=== PATIENT | female | born 1960 | race African-American/Black ===

== ENCOUNTER 2018-11-13 14:49 | Observation (INO) | payer SELFPAY ==
[2018-11-13 16:18] LABS: Anion Gap 12 mmol/L (10-20); BUN (Urea Nitrogen) 43 mg/dL (9.8-20.1); Calc. Creatinine Clearance 0 mL/min (70-130); Calcium 9.3 mg/dL (7.8-10.44); Carbon Dioxide 22 mmol/L (22-29); Chloride 112 mmol/L (98-107); Estimated GFR-MDRD 42; Glucose 125 mg/dL (70-105); Sodium 141 mmol/L (136-145)
[2018-11-13 17:13] LABS: Troponin I Less than 0.010 ng/mL (< 0.028)
[2018-11-13] MEDS ORDERED: Acetaminophen 650 MG Suppository PR PRN (17:50)
[2018-11-13] MEDS ORDERED: Acetaminophen 325 MG TAB PO PRN (17:50)
[2018-11-13] MEDS ORDERED: Ondansetron PF 4 MG/2 ML Vial IVP PRN (17:50)
[2018-11-13] MEDS ORDERED: Ondansetron ODT 4 MG TAB PO PRN (17:50)
[2018-11-13] MEDS ORDERED: Dextrose 5% in Water 1,000 ML IV PRN (18:06)
[2018-11-13] MEDS ORDERED: Dextrose 50% Abboject 50 ML SYRINGE SLOW IVP PRN (18:06)
--- NOTE | 2018-11-13 19:25 | RAD ---
FRONTAL VIEW ABDOMEN: INDICATIONS: Abdominal pain. Increased abdominal girth. FINDINGS: There is a nonspecific bowel gas pattern. No mechanical obstruction is evident. Mild retained fecal material of the colon is present. There is no acute osseous pathology. IMPRESSION: Nonobstructive bowel gas pattern. POS: [facility]
--- NOTE | 2018-11-13 19:44 | HP ---
CHIEF COMPLAINT: Chest pain for 1 week and lower leg weakness. HISTORY OF PRESENT ILLNESS AND REVIEW OF SYSTEMS: Ms. Salinas is a pleasant 58-year-old woman presenting due to chest pain that has been intermittent for the last week. She last experienced pain this morning when taking out the trash and states it lasted seconds in the center of her chest, rating it a 5/10 in severity. The patient states it is nonradiating. She reports having a chronic dry cough, which has not worsened in recent days. She denies having any hemoptysis. She has noted increased shortness of breath more recently. She did not take anything for the pain, but sought medical attention. She was seen at the ER in [place] and noted to be hyperkalemic with a potassium of 5.8, elevated renal function, with a raised glucose of 291. The patient was given Kayexalate and started on IV fluids. Also given insulin. She has been transferred to the ED here at [facility] and admitted to observation for management of her hyperkalemia, hyperglycemia, and chest pain rule out. Repeat laboratory studies done in the ED shows an improved glucose of 125 and a potassium improved to 5.0. The patient has remained asymptomatic. The patient states she was recently seen by her primary care physician,who made adjustments to her medications on October 24, 2018. Due to bilateral diabetic neuropathy affecting her feet, she was started on gabapentin 400 mg twice daily. She also reports having an increased blood pressure. Therefore, her lisinopril was switched to lisinopril/hydrochlorothiazide 20/25 mg p.o. once daily. The patient states she noted her blood pressures were very labile and that her sugar was not as controlled as usual. She attributed this to the recent change in medications. Therefore, resumed her previous dose of lisinopril and stopped the lisinopril/hydrochlorothiazide. She has also been under a lot of stress at home with her autistic daughter, who recently underwent brain surgery. The patient reports having a diastolic blood pressure of 117 on one occasion and 115 on another occasion. She does not recall what the systolic blood pressure was, but self treated with clonidine. She was given a prescription of clonidine 0.1 mg p.o. to take once if her blood pressures were raised (systolic or diastolic as per parameters). The patient states that she decided to double up on this medication each time that she has required it. Therefore, taking 0.2 mg p.o. p.r.n. for diastolic blood pressure above 110. The patient says she has noted periods of hypotension and associated weakness. In addition to that, she complains of abdominal discomfort and increased abdominal bloating. She reports history of dry heaving and occasional vomiting in the mornings in recent weeks, but has not had any vomiting in the last few days. She has been moving her bowels, however, reports straining and hard stools. Yesterday, she had a bowel movement that did again require straining, was very hard, and small. This morning, however, she had very loose stools. Has had no further bowel movements since then. She denies taking anything for constipation. At present, she denies having any chest pain or palpitations. Denies having any shortness of breath. Reports a dry cough as mentioned previously that has been chronic in recent months. She has no known underlying lung problems. Denies having any hemoptysis. Denies having any headaches or dizziness. Reports chronic right upper extremity weakness since the stroke she had in January 2018. Denies having any urinary symptoms since her dysuria, hematuria, urgency, or frequency. Has not noted any bright red blood or melena in her stools. She reports tingling and numbness in the bilateral feet, the right worse than the left. She states this did improve when she was on gabapentin, however, she took herself off it recently given the changes in her blood pressure and glucose. PAST MEDICAL HISTORY: 1. Hypertension. 2. Diabetes mellitus, type 2 (insulin dependent). 3. Previous CVA in January 2018. 4. Diabetic neuropathy. 5. Hyperlipidemia. PAST SURGICAL HISTORY: Previous hysterectomy. SOCIAL HISTORY: The patient is fully independent. 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 She denies any history of tobacco use. Denies any illicit drug use or alcohol use. PHYSICAL EXAMINATION: GENERAL: The patient appears well developed, well nourished, in no acute distress. VITAL SIGNS: Temperature 98.6, heart rate 62, respirations 18, blood pressure 159/86, O2 saturation 99% on room air. HEENT: Normocephalic and atraumatic. Pupils are equal, round, reactive to light. Extraocular movements intact. Facial movements normal and facial sensation intact. NECK: Supple without lymphadenopathy. Full range of motion. LUNGS: Clear to auscultation bilaterally without any wheezes, crackles, or rhonchi. CARDIAC: Regular rate and rhythm. No reproducible chest pain/tenderness on exam. ABDOMEN: Obese, soft, but with increased abdominal girth as per the patient and discomfort in the left lower quadrant with palpation, but no rigidity or guarding. No renal angle tenderness. EXTREMITIES: No edema present. The right calf appears to have an increased circumference compared to the left, which the patient states is not normal for her. Altered sensation with increased sense of activity from the ankles down to include both feet. SKIN: Without rash or jaundice or any wounds/ulcerations. NEUROLOGIC: Alert and oriented x3. No focal deficits. She does have residual weakness and altered sensation in the right upper extremity with strength of 3/5. The patient states this was residual from previous CVA. LABORATORY DATA: White blood count 10.3, hemoglobin 10, hematocrit 30.8, platelets 300. Sodium 141, potassium 5.0, BUN 43, GFR 71, creatinine 1.56, eGFR 42, calcium 9.3. Serial troponins x2 are negative. IMAGING DATA: Chest x-ray, 11/13/2018, no radiographic evidence of acute cardiopulmonary process. IMPRESSION AND PLAN: Ms. Salinas will be admitted to the observation unit for management of the following conditions. 1. Hyperkalemia. Continue to monitor potassium. She is status post Kayexalate and IV fluids with an improved potassium of 5.0. Continue telemetry and will recheck potassium in the morning. Additional electrolytes requested such as magnesium. 2. Chest pain rule out. Awaiting third TNI. ECG demonstrated normal sinus rhythm with mild diffuse ST elevation. BNP normal. We will obtain echo and stress test. 3. Right lower extremity swelling. D-dimer requested as well as bilateral venous Doppler. 4. Neuropathy. Resume home medication. Hold mechanical SCDs and use ARTIE hose stockings instead given neuropathy as well as ruling out deep venous thrombosis. 5. Hypertension. Monitor blood pressure. Resume home medications. 6. Hyperglycemia. Insulin sliding scale. Resume home medications. Monitor blood glucose. 7. Gastrointestinal prophylaxis. 8. Abdominal bloating with constipation. An abdominal x-ray requested. 9. Diet. N.p.o. at midnight with plans to have the patient undergo stress test in the morning if possible. 10. We will discuss with Dr. Dick for further recommendations. Job ID: [id number]
[2018-11-13 19:57] LABS: Troponin I Less than 0.010 ng/mL (< 0.028)
--- NOTE | 2018-11-13 20:31 | ULT ---
BILATERAL LOWER EXTREMITY VENOUS DOPPLER DUPLEX ULTRASOUND: CPT: 61698 ICD-10-PCS: B54D INDICATIONS: Right lower extremity edema and calf pain. TECHNIQUE: Color-flow Doppler, spectral wave-form analysis of pulsed Doppler, and arauz-scale imaging with compre ssion and augmentation were used to evaluate the bilateral common femoral, femoral, popliteal, manager of internal audit ior tibial, and superficial femoral veins, and the proximal portions of the profunda femoral and grea ter saphenous veins. FINDINGS: There is appropriate compressibility and flow within the imaged deep venous system of each lower extr emity without evidence of DVT. IMPRESSION: No deep venous thrombosis identified. POS: [facility]
[2018-11-13] MEDS ORDERED: Famotidine 20 MG TAB PO SCH (21:00)
[2018-11-13] MEDS ORDERED: Famotidine/PF 20 mg/2ml Vial SLOW IVP SCH (21:00)
[2018-11-13 22:27] VITALS: BMI 35.9
[2018-11-13] MEDS: HumaLOG 300 UNITS/3 ML VIAL SC PRN (23:29)
[2018-11-14 06:31] LABS: #Basophils 0.1 thou/uL (0.0-0.2); #Eosinphils 0.2 thou/uL (0.0-0.7); #Lymphocytes 1.7 thou/uL (1.20-3.40); #Monocytes 0.5 thou/uL (0.11-0.59); #Neutrophils 6.3 thou/uL (1.40-6.50); %Basophils 0.8 % (0.0-1.0); %Eosinophils 2.2 % (0.0-10.0); %Lymphocytes 19.5 % (21.0-51.0); %Monocytes 6.1 % (0.0-10.0); %Neutrophils 71.4 % (42.0-75.0); Hemoglobin 9.4 g/dL (12.0-16.0); Mean Corpuscular HGB CONC 33.2 g/dL (32.0-36.0); Mean Corpuscular Hemoglobin 26.3 pg (27.0-31.0); Mean Corpuscular Volume 79.4 fL (78.0-98.0); Mean Platelet Volume 9.5 fL (7.4-10.4); Platelet Count 283 thou/uL (130-400); RBC Distribution Width 13.8 % (11.5-14.5); Red Blood Cell (RBC) Count 3.57 mill/uL (4.20-5.40); White Blood Cell (WBC) Count 8.8 thou/uL (4.8-10.8)
[2018-11-14 06:47] LABS: ALT (SGPT) 14 U/L (8-55); AST (SGOT) 12 U/L (5-34); Albumin 3.2 g/dL (3.5-5.0); Alkaline Phosphatase 138 U/L (40-150); Anion Gap 13 mmol/L (10-20); BUN (Urea Nitrogen) 38 mg/dL (9.8-20.1); Bilirubin, Total 0.3 mg/dL (0.2-1.2); Calc. Creatinine Clearance 57 mL/min (70-130); Carbon Dioxide 21 mmol/L (22-29); Cardiac Risk 3.5 (Less than 4.5); Chloride 112 mmol/L (98-107); Cholesterol 126 mg/dl (< 200 Desired); Estimated GFR-MDRD 40; Globulin 2.8 g/dL (2.4-3.5); Glucose 240 mg/dL (70-105); HDL Cholesterol 36 mg/dL (>60 Neg Risk); LDL Cholesterol, Calculated 69 mg/dL; Potassium 4.8 mmol/L (3.5-5.1); Sodium 141 mmol/L (136-145); Triglycerides 104 mg/dL (Less than 150)
[2018-11-14] MEDS ORDERED: Artificial Tears 18 DROP/0.9 ML EA EYE PRN (07:44)
[2018-11-14] MEDS ORDERED: Loratadine 10 MG TAB PO PRN (07:44)
[2018-11-14] MEDS ORDERED: Cepastat Lozenges 1 LOZ PO PRN (07:44)
[2018-11-14] MEDS ORDERED: Loperamide HCl 2 MG CAP PO PRN (07:44)
[2018-11-14] MEDS ORDERED: Sodium Chloride 0.65% Nasal 44 ML BOT EA NARE PRN (07:44)
[2018-11-14] MEDS ORDERED: Diabetic Tussin 200 MG/10 ML UDCUP PO PRN (07:44)
[2018-11-14] MEDS ORDERED: Eucerin (Mineral Oil/Petrolatum,White) 30 gm Jar TOP PRN (07:44)
[2018-11-14] MEDS ORDERED: Nitroglycerin 0.4 MG TAB (25 Tab Bottle) SL PRN (07:44)
[2018-11-14] MEDS ORDERED: hydrALAZINE 20 MG/ML VIAL SLOW IVP PRN (07:44)
[2018-11-14] MEDS ORDERED: INSULIN DETEMIR 40 UNIT SQ SCH ×2 (08:00→21:00)
[2018-11-14] MEDS ORDERED: Insulin Glargine 40 UNITS in Pre-Filled Syringe 1 EACH SC SCH (09:00)
[2018-11-14] MEDS ORDERED: ADENOSINE 60 MG/20 ML VIAL ONE (10:01)
[2018-11-14] MEDS: Aspirin 325 mg Enteric Coated Tablet PO SCH (12:03)
[2018-11-14] MEDS: Polyethylene Glycol 3350 17 GM Packet PO SCH (12:04)
[2018-11-14] MEDS: Insulin Glargine 40 UNITS in Pre-Filled Syringe 1 EACH SC SCH ×2 (12:12→20:47)
[2018-11-14] MEDS: Famotidine 20 MG TAB PO SCH (12:23)
[2018-11-14] MEDS: HumaLOG 300 UNITS/3 ML VIAL SC PRN ×3 (13:23→20:48)
[2018-11-14] MEDS ORDERED: Fluconazole 100 MG TAB PO SCH (13:30)
[2018-11-14] MEDS ORDERED: Atorvastatin Calcium 40 MG TAB PO SCH (21:00)
[2018-11-15] MEDS ORDERED: Fluconazole 100 MG TAB PO SCH (09:00)
[2018-11-15] MEDS: Polyethylene Glycol 3350 17 GM Packet PO SCH (09:11)
[2018-11-15] MEDS: Famotidine 20 MG TAB PO SCH (09:12)
[2018-11-15] MEDS: Aspirin 325 mg Enteric Coated Tablet PO SCH (09:12)
[2018-11-15] MEDS: Insulin Glargine 40 UNITS in Pre-Filled Syringe 1 EACH SC SCH (09:14)
[2018-11-15] MEDS: HumaLOG 300 UNITS/3 ML VIAL SC PRN ×2 (09:16→11:40)
--- NOTE | 2018-11-15 10:23 | PDOC.PN ---
- Subjective Encounter Start Date: 11/14/18 (this is late entry, pt was seen on that day) Encounter Start Time: 07:00 -: old records requested/rev Patient seen and examined. No new complaints. No overnight events - Objective Resuscitation Status - Order Detail: 11/13/18 17:50 Resuscitation Status Routine Co-Sign Provider: Resuscitation Status: FULL: Full Resuscitation MAR Reviewed: Yes Vital Signs & Weight: Vital Signs (12 hours) Temp Pulse Resp BP BP BP Pulse Ox 11/15/18 07:45 98.4 F 68 16 169/86 H 169/86 H 98 11/15/18 04:00 97.9 F 84 18 136/74 96 11/14/18 23:03 73 16 140/80 Weight Weight 202 lb 6.4 oz I&O: 11/14/18 11/15/18 11/16/18 06:59 06:59 06:59 Intake Total 847 1725 Output Total 1600 1900 Balance -753 -175 Result Diagrams: 11/14/18 05:00 11/14/18 05:00 Additional Labs: Accuchecks 11/15/18 11/14/18 11/14/18 05:41 20:37 16:29 POC Glucose 165 H 300 H 373 H 11/14/18 13:08 POC Glucose 348 H EKG Reviewed by me: Yes (nsr) Phys Exam - Physical Examination Constitutional: NAD HEENT: PERRLA, moist MMs, sclera anicteric Neck: no JVD, supple Respiratory: no wheezing, no rales, no rhonchi Cardiovascular: RRR, no significant murmur, no rub Gastrointestinal: soft, non-tender, no distention, positive bowel sounds Musculoskeletal: no edema, pulses present Neurological: non-focal, normal sensation, moves all 4 limbs Lymphatic: no nodes Psychiatric: normal affect, A&O x 3 Skin: no rash, normal turgor Dx/Plan (1) Chest pain Code(s): R07.9 - CHEST PAIN, UNSPECIFIED Status: Acute (2) Anemia, normocytic normochromic Code(s): D64.9 - ANEMIA, UNSPECIFIED Status: Chronic (3) CKD (chronic kidney disease) stage 3, GFR 30-59 ml/min Code(s): N18.3 - CHRONIC KIDNEY DISEASE, STAGE 3 (MODERATE) Status: Chronic (4) Diabetes type 2, controlled Code(s): E11.9 - TYPE 2 DIABETES MELLITUS WITHOUT COMPLICATIONS Status: Chronic (5) Dyslipidemia Code(s): E78.5 - HYPERLIPIDEMIA, UNSPECIFIED Status: Chronic (6) Hypertension Code(s): I10 - ESSENTIAL (PRIMARY) HYPERTENSION Status: Chronic (7) Obesity (BMI 30-39.9) Code(s): E66.9 - OBESITY, UNSPECIFIED Status: Chronic (8) Hyperkalemia Code(s): E87.5 - HYPERKALEMIA Status: Resolved - Plan cont current plan of care * medication reviewed as below * symptomatic treatment * today stress test will be done * echo done * US negative * BP now controlled * will monitor. Review of Systems - Review of Systems ENT: negative: Ear Pain, Ear Discharge, Nose Pain, Nose Discharge, Nose Congestion, Mouth Pain, Mouth Swelling, Throat Pain, Throat Swelling, Other Respiratory: negative: Cough, Dry, Shortness of Breath, Hemoptysis, SOB with Excertion, Pleuritic Pain, Sputum, Wheezing Cardiovascular: negative: chest pain, palpitations, orthopnea, paroxysmal nocturnal dyspnea, edema, light headedness, other Gastrointestinal: negative: Nausea, Vomiting, Abdominal Pain, Diarrhea, Constipation, Melena, Hematochezia, Other Genitourinary: negative: Dysuria, Frequency, Incontinence, Hematuria, Retention , Other Musculoskeletal: negative: Neck Pain, Shoulder Pain, Arm Pain, Back Pain, Hand Pain, Leg Pain, Foot Pain, Other Skin: negative: Rash, Lesions, Arun, Bruising, Other - Medications/Allergies Allergies/Adverse Reactions: Allergies Allergy/AdvReac Type Severity Reaction Status Date / Time hydrocodone Allergy Rash Verified 11/13/18 22:33 pregabalin [From Lyrica] Allergy Rash Verified 11/13/18 22:33 Medications: Current Medications Acetaminophen (Tylenol) 650 mg PO Q4H PRN PRN Reason: Headache/Fever/Mild Pain (1-3) Artificial Tears (Tears Naturale) 2 drop EA EYE PRN PRN PRN Reason: Dry Eyes Aspirin (Ecotrin) 325 mg PO QAM [facility] Last Admin: 11/15/18 09:12 Dose: 325 mg Atorvastatin Calcium (Lipitor) 80 mg PO HS [facility] Last Admin: 11/14/18 20:47 Dose: 80 mg Dextrose/Water (Dextrose 50%) 25 gm SLOW IVP PRN PRN PRN Reason: Hypoglycemia Famotidine (Pepcid) 20 mg PO DAILY [facility] Last Admin: 11/15/18 09:12 Dose: 20 mg Fluconazole (Diflucan) 100 mg PO DAILY [facility] Last Admin: 11/15/18 09:12 Dose: 100 mg Glucagon (Glucagon) 1 mg IM PRN PRN PRN Reason: Hypoglycemia Guaifenesin (Robitussin Sf) 200 mg PO Q4H PRN PRN Reason: Cough Hydralazine HCl (Apresoline) 10 mg SLOW IVP Q4H PRN PRN Reason: SBP > 180 and HR < 70 Last Admin: 11/14/18 16:52 Dose: 10 mg Dextrose/Water (D5w) 1,000 mls @ 0 mls/hr IV .Q0M PRN PRN Reason: Hypoglycemia Insulin Glargine 40 units/ (Miscellaneous Medication) 0.4 mls @ 0 mls/hr SC BID [facility] Last Admin: 11/15/18 09:14 Dose: 0.4 mls Insulin Human Lispro (Humalog) 0 units SC .BEDTIME SLIDING SC PRN PRN Reason: Bedtime Correctional Scale Last Admin: 11/14/18 20:48 Dose: 3 unit Insulin Human Lispro (Humalog) 0 units SC .MILD SLIDING SCALE PRN PRN Reason: Mild Correctional Scale Last Admin: 11/15/18 09:16 Dose: 2 unit Loperamide HCl (Imodium) 2 mg PO PRN PRN PRN Reason: Diarrhea/Loose Stools Loratadine (Claritin) 10 mg PO DAILYPRN PRN PRN Reason: Sinus Symptoms Mineral Oil/White Petrolatum (Eucerin Cream) 0 gm TOP BIDPRN PRN PRN Reason: Dry Skin Nitroglycerin (Nitrostat) 0.4 mg SL Q5MIN PRN PRN Reason: Chest Pain Ondansetron HCl (Zofran Odt) 4 mg PO Q6H PRN PRN Reason: Nausea/Vomiting Ondansetron HCl (Zofran) 4 mg IVP Q6H PRN PRN Reason: Nausea/Vomiting Polyethylene Glycol (Miralax) 17 gm PO DAILY [facility] Last Admin: 11/15/18 09:11 Dose: 17 gm Sodium Chloride (Flush - Normal Saline) 10 ml IVF Q12HR PRN PRN Reason: Saline Flush Last Admin: 11/15/18 09:13 Dose: 10 ml Sodium Chloride (Flush - Normal Saline) 10 ml IVF PRN PRN PRN Reason: Saline Flush Last Admin: 11/14/18 20:48 Dose: 10 ml Sodium Chloride ([place] Nasal [place] 0.65%) 0 ml EA NARE QIDPRN PRN PRN Reason: Nasal Congestion Throat Lozenges (Cepastat Lozenges) 1 kim PO Q2H PRN PRN Reason: Sore Throat
--- NOTE | 2018-11-15 11:00 | NM ---
RADIONUCLIDE STRESS AND REST MYOCARDIAL PERFUSION SCAN WITH CT ATTENUATION CORRECTION AND SPECT IMAGI NG WITH LEFT VENTRICULAR WALL MOTION EVALUATION AND EJECTION FRACTION: HISTORY: Chest pain. Hypertension. FINDINGS: Adenosine protocol. There is homogeneous uptake of radiotracer throughout the left ventricular myocar dium. No focal perfusion defect or reversibility. QGS analysis of gated SPECT images shows no focal wall motion abnormalities. Ejection fraction calculated at 73%. IMPRESSION: 1. Normal myocardial perfusion scan. 2. Normal LVEF. POS: [facility]
[2018-11-15] MEDS ORDERED: NIFEdipine XL 60 MG TAB PO SCH (11:15)
[2018-11-15 11:40] VITALS: BP 141/88
--- NOTE | 2018-11-15 11:40 | DIS ---
DATE OF ADMISSION: 11/13/2018 DATE OF DISCHARGE: 11/15/2018 PRIMARY CARE PHYSICIAN: Dr. Nicole Aguirre MD. DISCHARGE DISPOSITION: Home. PRIMARY DISCHARGE DIAGNOSES: 1. Chest pain, ruled out acute coronary syndrome. 2. Hyperkalemia, resolved. SECONDARY DISCHARGE DIAGNOSES: Chronic kidney disease, stage III, diabetes type 2, hypertension, dyslipidemia, obesity with BMI of 33. PRIMARY PROCEDURE/OPERATION: None. RADIOLOGICAL INVESTIGATION: Abdomen x-ray, normal. Ultrasound, negative for DVT. Stress test, negative for any reversible ischemia. Echocardiography showed diastolic dysfunction. SIGNIFICANT LABORATORY DATA: WBC 8.8, hemoglobin 9.4, platelets 283. D-dimer 0.37. Sodium 141, potassium 5.0, BUN 43, creatinine 1.56, calcium 9.3. Cardiac enzyme negative. TSH 1.02. LFT normal. LDL 69. DISCHARGE MEDICATION: 1. Procardia XL 60 mg daily. 2. Clonidine 0.1 mg p.o. q.6 hourly p.r.n. 3. Metformin 1000 mg b.i.d. 4. Lisinopril 20 mg daily. 5. Levemir 40 units subcu at bedtime and 40 units in the morning. 6. Lipitor 80 mg p.o. at bedtime. 7. Aspirin 325 mg p.o. daily. CONTRAINDICATION: None. CODE STATUS: Full code. INPATIENT SUPERINTENDENT INSTITUTION: None. ALLERGIES: HYDROCODONE, LYRICA. DISCHARGE PLAN: Posthospital, the patient has appointment with primary care physician in one week. HOSPITAL COURSE: A 58-year-old female, who was admitted by Shayy Murray. Please see her H and P for further detail. The patient was admitted for chest pain. She initially evaluated at [facility], where she was found with hyperkalemia that was related to probably with lisinopril. Without doing anything, her hyperkalemia resolved with repeat testing. Her renal function is stable. This patient's diabetes was not well controlled while in hospital because she did not receive insulin because of n.p.o. status post stress test. We did not make any change in her diabetes medication but for better blood pressure control, we added Procardia XL. We did serial cardiac enzymes, which were negative. The patient underwent stress test, which was negative. Echocardiography showed diastolic dysfunction. Ultrasound was negative for any DVT. The patient is now medically stable, ambulatory, tolerating p.o. well. I have seen this patient at bedside and examined. REVIEW OF SYSTEMS: All review of systems reviewed with her and negative. PHYSICAL EXAMINATION: VITAL SIGNS: Currently, temperature 97.9, pulse 84, respiratory rate 18, saturation 96%, blood pressure 136/74. Weight 202 pounds. GENERAL: The patient is currently alert, awake, no obvious acute distress. HEENT: Head; normocephalic, atraumatic. Eyes; pupils round, reactive to light. Extraocular muscles intact. ENT; oropharynx within normal limits. LUNGS: Clear without any rhonchi or rales. CARDIAC: S1, S2 regular without any murmur. ABDOMEN: Soft and benign without any tenderness. EXTREMITIES: No edema. NEUROLOGIC: Nonfocal examination. The patient is medically stable for discharge today. Job ID: [id number]
[2018-11-15 12:09] VITALS: TEMP 98.6
[2018-11-16] MEDS ORDERED: NIFEdipine XL 60 MG TAB PO SCH (09:00)
== END 2018-11-15 13:28 | disposition home or self-care (01) ==
LOC: ERS 14:49 → ERHOLD 16:00 → 2NO 20:32
PROVIDERS: ADMIT Internal Medicine; ATTEND Internal Medicine
DX: R07.9 Chest pain, unspecified (principal); E87.5 Hyperkalemia; I12.9 Hypertensive chronic kidney disease with stage 1 through stage 4 chronic kidney disease, or unspecified chronic kidney disease; E11.22 Type 2 diabetes mellitus with diabetic chronic kidney disease; N18.3 Chronic kidney disease, stage 3 (moderate); D63.1 Anemia in chronic kidney disease; E78.5 Hyperlipidemia, unspecified; E11.42 Type 2 diabetes mellitus with diabetic polyneuropathy; E11.65 Type 2 diabetes mellitus with hyperglycemia; E66.9 Obesity, unspecified; Z68.33 Body mass index [BMI] 33.0-33.9, adult; Z86.73 Personal history of transient ischemic attack (TIA), and cerebral infarction without residual deficits; Z79.4 Long term (current) use of insulin; Z79.82 Long term (current) use of aspirin; Z79.899 Other long term (current) drug therapy; Z88.5 Allergy status to narcotic agent; Z88.8 Allergy status to other drugs, medicaments and biological substances
CPT/HCPCS: 36415; 36416; 74018; 78452; 80053; 80061; 83735; 84443; 85025; 85379; 93005; 93017; 93306; 93970; 96360; 96361; 96374; A9500; G0378; J0153; J0360; J1825

== ENCOUNTER 2022-04-08 09:43 | Outpatient (CLI) | payer MEDICARE | END 2022-04-08 09:44 | disposition home or self-care (01) | LOC: BICULT 09:43 | PROVIDERS: ATTEND Family Medicine | DX: M79.89 Other specified soft tissue disorders (principal); N18.4 Chronic kidney disease, stage 4 (severe); D63.1 Anemia in chronic kidney disease; D63.8 Anemia in other chronic diseases classified elsewhere; M1A.9XX0 Chronic gout, unspecified, without tophus (tophi); R60.0 Localized edema; M71.22 Synovial cyst of popliteal space [Baker], left knee | CPT/HCPCS: 93970 ==

== ENCOUNTER 2022-04-27 19:00 | Outpatient (CLI) | payer MEDICARE | END 2022-04-27 19:01 | disposition home or self-care (01) | LOC: SLEEPLAB 19:00 | PROVIDERS: ATTEND Family Medicine | DX: G47.10 Hypersomnia, unspecified (principal) | CPT/HCPCS: 95810 ==

== ENCOUNTER 2022-09-21 16:14 | Inpatient (IN) | payer MEDICARE ==
[2022-09-21] MEDS ORDERED: Acetaminophen 650 MG Suppository PR PRN (23:29)
[2022-09-21] MEDS ORDERED: Ondansetron ODT 4 MG TAB PO PRN (23:29)
[2022-09-21] MEDS ORDERED: Ondansetron PF 4 MG/2 ML Vial IVP PRN (23:29)
[2022-09-21] MEDS ORDERED: Dextrose 50% Abboject 50 ML SYRINGE SLOW IVP PRN (23:32)
[2022-09-21] MEDS ORDERED: HumaLOG 300 UNITS/3 ML VIAL SC PRN ×2 (23:32)
[2022-09-21] MEDS ORDERED: Dextrose 5% in Water 1,000 ML IV PRN (23:32)
[2022-09-21 23:34] VITALS: BMI 39.3
[2022-09-22 05:41] LABS: #Eosinphils 0.2 thou/uL (0.0-0.7); #Lymphocytes 1.4 thou/uL (1.20-3.40); #Monocytes 0.5 thou/uL (0.11-0.59); #Neutrophils 5.3 thou/uL (1.40-6.50); %Basophils 0.2 % (0.0-1.0); %Eosinophils 3.2 % (0.0-10.0); %Monocytes 7.1 % (0.0-10.0); %Neutrophils 70.5 % (42.0-75.0); Hemoglobin 8.2 g/dL (12.0-16.0); Mean Corpuscular HGB CONC 32.6 g/dL (32.0-36.0); Mean Corpuscular Hemoglobin 25.5 pg (27.0-31.0); Mean Corpuscular Volume 78.2 fl (78.0-98.0); Mean Platelet Volume 11.2 fL (7.4-10.4); Platelet Count 214 10x3/uL (130-400); RBC Distribution Width 18.6 % (11.5-14.5); Red Blood Cell (RBC) Count 3.23 mill/uL (4.20-5.40); White Blood Cell (WBC) Count 7.5 10x3/uL (4.8-10.8)
[2022-09-22 05:56] LABS: Anion Gap 12 mmol/L (10-20); BUN (Urea Nitrogen) 51 mg/dL (9.8-20.1); Calc. Creatinine Clearance 30 mL/min (70-130); Calcium 8.8 mg/dL (7.8-10.44); Carbon Dioxide 21 mmol/L (22-29); Cardiac Risk 3.3 (Less than 4.5); Chloride 112 mmol/L (98-107); Cholesterol 99 mg/dl (< 200 Desired); Estimated GFR 15; Glucose 127 mg/dL (70-105); HDL Cholesterol 30 mg/dL (>60 Neg Risk); LDL Cholesterol, Calculated 57 mg/dL; Potassium 4.6 mmol/L (3.5-5.1); Sodium 140 mmol/L (136-145); Triglycerides 60 mg/dL (Less than 150)
[2022-09-22] MEDS ORDERED: Aspirin 325 mg Enteric Coated Tablet PO SCH (09:00)
[2022-09-22] MEDS: NIFEdipine XL 60 MG TAB PO SCH (09:58)
[2022-09-22] MEDS: Enoxaparin Sodium 30 MG/0.3 ML SYRINGE SC SCH (09:59)
[2022-09-22] MEDS: Sodium Chloride 0.9% 1,000 ML IV SCH (18:27)
[2022-09-22] MEDS: Atorvastatin Calcium 40 MG TAB PO SCH (20:46)
[2022-09-22] MEDS: Insulin Glargine 30 UNITS/0.3 ML VIAL SC SCH (20:46)
[2022-09-23 07:40] LABS: Anion Gap 13 mmol/L (10-20); BUN (Urea Nitrogen) 52 mg/dL (9.8-20.1); Calc. Creatinine Clearance 29 mL/min (70-130); Calcium 8.7 mg/dL (7.8-10.44); Carbon Dioxide 21 mmol/L (22-29); Chloride 113 mmol/L (98-107); Estimated GFR 15; Glucose 119 mg/dL (70-105); Potassium 4.9 mmol/L (3.5-5.1); Sodium 142 mmol/L (136-145)
[2022-09-23] MEDS: Insulin Glargine 30 UNITS/0.3 ML VIAL SC SCH ×2 (08:58→20:40)
[2022-09-23] MEDS: Enoxaparin Sodium 30 MG/0.3 ML SYRINGE SC SCH (08:58)
[2022-09-23] MEDS: NIFEdipine XL 60 MG TAB PO SCH (08:59)
[2022-09-23] MEDS: Sodium Chloride 0.9% 1,000 ML IV SCH (10:47)
[2022-09-23] MEDS: Acetaminophen 325 MG TAB PO PRN ×2 (10:47→18:20)
[2022-09-23] MEDS: Atorvastatin Calcium 40 MG TAB PO SCH (20:40)
[2022-09-24 05:40] LABS: Anion Gap 12 mmol/L (10-20); BUN (Urea Nitrogen) 58 mg/dL (9.8-20.1); Calc. Creatinine Clearance 29 mL/min (70-130); Calcium 8.2 mg/dL (7.8-10.44); Carbon Dioxide 19 mmol/L (22-29); Chloride 113 mmol/L (98-107); Estimated GFR 15; Glucose 112 mg/dL (70-105); Potassium 4.6 mmol/L (3.5-5.1); Sodium 139 mmol/L (136-145)
[2022-09-24 07:45] VITALS: BP 151/72; TEMP 98.1
[2022-09-24] MEDS: NIFEdipine XL 60 MG TAB PO SCH (08:26)
[2022-09-24] MEDS: Enoxaparin Sodium 30 MG/0.3 ML SYRINGE SC SCH (08:26)
[2022-09-24] MEDS: Insulin Glargine 30 UNITS/0.3 ML VIAL SC SCH (08:27)
[2022-09-24] MEDS: Sodium Chloride 0.9% 1,000 ML IV SCH (08:29)
[2022-09-24] MEDS: Acetaminophen 325 MG TAB PO PRN (11:24)
== END 2022-09-24 14:52 | disposition home or self-care (01) | DRG 92 ==
LOC: 2SW 19:59 → OBSVTOIN 09-22 11:38 → EEVIPCON 09-22 11:38
PROVIDERS: ADMIT Internal Medicine; ATTEND Internal Medicine
DX: R20.2 Paresthesia of skin (principal); N17.9 Acute kidney failure, unspecified; N18.4 Chronic kidney disease, stage 4 (severe); G93.89 Other specified disorders of brain; E86.1 Hypovolemia; E11.22 Type 2 diabetes mellitus with diabetic chronic kidney disease; I12.9 Hypertensive chronic kidney disease with stage 1 through stage 4 chronic kidney disease, or unspecified chronic kidney disease; E78.5 Hyperlipidemia, unspecified; R79.89 Other specified abnormal findings of blood chemistry; E66.9 Obesity, unspecified; Z68.39 Body mass index [BMI] 39.0-39.9, adult; Z79.899 Other long term (current) drug therapy; Z79.82 Long term (current) use of aspirin; Z79.84 Long term (current) use of oral hypoglycemic drugs; Z88.8 Allergy status to other drugs, medicaments and biological substances; Z86.73 Personal history of transient ischemic attack (TIA), and cerebral infarction without residual deficits; Z90.710 Acquired absence of both cervix and uterus; Z98.49 Cataract extraction status, unspecified eye
CPT/HCPCS: 36415; 36416; 70551; 71046; 71250; 74177; 78451; 80048; 80061; 85025; 93306; 93880; 96372; A9540; G0378; J1650; J1815; J7050

== ENCOUNTER 2022-10-27 10:06 | Outpatient (CLI) | payer MEDICARE | END 2022-10-27 10:07 | disposition home or self-care (01) | LOC: BICMAMMO 10:06 | PROVIDERS: ATTEND Internal Medicine | DX: N63.20 Unspecified lump in the left breast, unspecified quadrant (principal) | CPT/HCPCS: 77066; G0279 ==

== ENCOUNTER 2023-11-24 10:13 | Emergency (ER) | payer MEDICARE ==
[2023-11-24 11:56] LABS: #Eosinphils 0.6 thou/uL (0.0-0.7); #Monocytes 0.8 thou/uL (0.11-0.59); #Neutrophils 7.1 thou/uL (1.40-6.50); %Basophils 0.4 % (0.0-1.0); %Lymphocytes 14.9 % (21.0-51.0); %Monocytes 7.7 % (0.0-10.0); %Neutrophils 70.5 % (42.0-75.0); Hematocrit 29.4 % (36.0-47.0); Hemoglobin 9.3 g/dL (12.0-16.0); Mean Corpuscular HGB CONC 31.6 g/dL (32.0-36.0); Mean Corpuscular Hemoglobin 25.1 pg (27.0-31.0); Mean Corpuscular Volume 79.5 fl (78.0-98.0); Mean Platelet Volume 10.9 fL (7.4-10.4); Platelet Count 260 10x3/uL (130-400); RBC Distribution Width 18.8 % (11.5-14.5); White Blood Cell (WBC) Count 10.1 10x3/uL (4.8-10.8)
[2023-11-24 12:24] LABS: ALT (SGPT) 13 U/L (8-55); AST (SGOT) 14 U/L (5-34); Albumin 4.1 g/dL (3.4-4.8); Alkaline Phosphatase 85 U/L (40-110); Anion Gap 15 mmol/L (10-20); BUN (Urea Nitrogen) 74 mg/dL (9.8-20.1); Bilirubin, Total 0.4 mg/dL (0.2-1.2); Calc. Creatinine Clearance 0 mL/min (70-130); Calcium 9.8 mg/dL (7.8-10.44); Carbon Dioxide 18 mmol/L (23-31); Chloride 111 mmol/L (98-107); Estimated GFR 11; Globulin 3.1 g/dL (2.4-3.5); Glucose 98 mg/dL (80-115); Potassium 4.5 mmol/L (3.5-5.1); Protein, Total 7.2 g/dL (5.8-8.1); Sodium 139 mmol/L (136-145)
== END 2023-11-24 13:06 | disposition home or self-care (01) ==
LOC: ERS 10:13
DX: R60.0 Localized edema (principal); E11.40 Type 2 diabetes mellitus with diabetic neuropathy, unspecified; E11.22 Type 2 diabetes mellitus with diabetic chronic kidney disease; N18.9 Chronic kidney disease, unspecified; I13.0 Hypertensive heart and chronic kidney disease with heart failure and stage 1 through stage 4 chronic kidney disease, or unspecified chronic kidney disease; I50.9 Heart failure, unspecified; Z79.899 Other long term (current) drug therapy; Z79.82 Long term (current) use of aspirin
CPT/HCPCS: 36415; 80053; 83880; 85025